=== PATIENT | female | born 1970 | race Caucasian/White ===

== ENCOUNTER → 2021-01-24 17:20 | Outpatient (CLI) | payer BC, SELFPAY ==
--- NOTE | ~2021-01-24 | MM_ITS ---
EXAMINATION: MM screening [facility] BI w yarelis HISTORY: Screening mammogram TECHNIQUE: Craniocaudal and mediolateral oblique 3-D tomosynthesis images were obtained and synthetic 2-D images were generated. CAD analysis was submitted and interpreted. COMPARISON: 04/21/2019, 06/28/2017, 06/23/2016 bilateral digital screening mammogram examinations BREAST PARENCHYMAL COMPOSITION: The breasts are extremely dense, which lowers the sensitivity of mamm ography. FINDINGS: There is no evidence of suspicious mass, calcification, or architectural distortion to sugg est malignancy in either breast. There has been no suspicious interval change. IMPRESSION: 1. No mammographic evidence of malignancy. 2. Recommend routine screening mammography in one year. BI-RADS Category 1: Negative Reviewed, dictated and finalized at location A.
== END ==
PROVIDERS: Visit Provider Obstetrics & Gynecology
DX: Z12.31 Encounter for screening mammogram for malignant neoplasm of breast (principal)
CPT/HCPCS: 77063; 77067

== ENCOUNTER 2021-06-06 02:13 | Emergency (ER) | payer BC, SELFPAY ==
--- NOTE | 2021-06-06 02:14 | ECG_ITS ---
Measurements Intervals [place] Rate: 112 P: 76 ID: 147 QRS: 77 QRSD: 110 T: 13 QT: 354 QTc: 483 Interpretive Statements SINUS TACHYCARDIA POSSIBLE LEFT ATRIAL ENLARGEMENT INCOMPLETE RIGHT BUNDLE BRANCH BLOCK NONSPECIFIC ST & T-WAVE ABNORMALITY- ANTEROLAT/INF LEADS BASELINE ARTIFACT- I, II, III, AVR, AVL, AVF, V1-V6 ABNORMAL ECG Electronically Signed On 06-06-2021 6:42:01 CDT by Robb Thompson D.O.
[2021-06-06 02:28] VITALS: BP 151/78; PULSE 127; RESP 14; O2SAT 100
[2021-06-06 02:32] VITALS: BP 127/87; PULSE 105; RESP 20; TEMP 37.1; O2SAT 99
--- NOTE | 2021-06-06 02:38 | ED.ARRPALP ---
HPI - Arrhythmia/Palpitations General Chief Complaint: Arrhythmia/Palpitations Stated Complaint: AFIB Time Seen by Provider: 06/06/21 02:17 Source: patient, RN notes reviewed and old records reviewed Mode of arrival: ambulatory Limitations: no limitations History of Present Illness HPI narrative: This is a 50 year old female with history of anxiety and tachycardia who presents for evaluation of possible atrial fibrillation. She states she was laying in bed around midnight when she develop heart pounding and racing. She had associated mouth tingling and lightheadedness. She took an extra Cardizem 30 mg. She was unable to get her symptoms to pass so she came to ER. She states she still feels same feeling now although EKG only shows sinus tachycardia. She denies chest pain or shortness of breath. She also notes abdominal bloating and feeling of fullness for 2 weeks. She denies abdominal pain, nausea or vomiting or constipation with her symptoms. She is seeing Dr. Rogers for her tachycardia, and she was told she had mitral prolapse and intermittent episodes of atrial fibrillation. Shed denies taking any stimulant. 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 Review of Systems Review of Systems: All systems reviewed & are unremarkable except as noted in HPI and below PMFSH Past Medical History Medical History (Updated 06/06/21 @ 04:06 by Amelia Hays MD) GERD (gastroesophageal reflux disease) IBS (irritable bowel syndrome) Lyme disease Mitral valve prolapse Osteoporosis UTI (urinary tract infection) Surgical History Surgical History History of hysterectomy Hx of cholecystectomy Family History Family History (Updated 01/05/19 @ 16:28 by DOCTOR UNKNOWN) Mother Diabetes mellitus Social History Social History Smoking status: Never smoker Second hand tobacco smoke exposure: No Alcohol intake: never Gender identity (if verbalized by the patient): Female Exam Const: General: alert Nutritional Appearance: thin Orientation/consciousness: patient oriented x3 Eyes: EOM: EOMs intact bilaterally Resp: Effort & Inspection: normal respiratory effort and no retractions Auscultation: clear to auscultation bilaterally Cardio: Rate: tachycardic Rhythm: regular rhythm Heart sounds: no murmurs GI: GI Palp: Yes Soft to palpation, No Tenderness to palpation present (GI) and No Guarding due to palpation present (GI) Auscultation: normal bowel sounds Skin: General skin exam: normal color Rashes: no rashes Neuro: General: patient oriented x3, moves all extremities and CN's II-XI intact bilaterally Extrem: General: normal to inspection Psych: Affect: Anxious affect present Course Reevaluation(s) Reevaluation #1: PAtient has no symptoms now. Vitals now are HR 87 normal sinus BP 136/83. She was given potassium supplement. She will call DR. Kelley tomorrow for follow up and possible increase in her cardizem. Date: 06/06/21 Time: 04:02 Vital Signs Vital signs: Vital Signs Pulse Rate 127 H 06/06/21 02:28 Respiratory Rate 14 06/06/21 02:28 Blood Pressure 151/78 H 06/06/21 02:28 Pulse Oximetry 100 06/06/21 02:28 Temperature 98.7 F 06/06/21 02:32 Pulse Rate 86 06/06/21 04:21 Respiratory Rate 12 06/06/21 04:21 Blood Pressure 136/83 06/06/21 04:21 Pulse Oximetry 98 06/06/21 04:21 MDM - Arrhythmia/Palpitations Medical Records Attestation: I reviewed the patient's medical records. Lab Data Attestation: I reviewed the patient's lab results. Result diagrams: 06/06/21 02:43 06/06/21 02:43 Labs: Lab Results 06/06/21 06/06/21 06/06/21 Range/U
[2021-06-06 02:55] LABS: Basophils Percent Auto 0.4 % (0.2-1.2); Eosinophils Percent Auto 0.5 % (0-4.4); Hematocrit 43.1 % (37.0-47.0); Immature Granulocyte Absolute 0.01 K/mm3 (0.00-0.031); Immature Granulocyte Percent A 0.2 % (0-0.5); Lymphocytes Absolute Auto 1.27 K/mm3 (0.9-3.2); Lymphocytes Percent Auto 23.1 % (18.3-44.2); Mean Corpuscular HGB Conc 32.5 g/dl (32-36); Mean Corpuscular Hemoglobin 31.7 pg (26-34); Mean Corpuscular Volume 97.7 fl (80-100); Mean Platelet Volume 11.6 fl (7.4-10.4); Monocytes Absolute Auto 0.7 K/mm3 (0.1-0.6); Monocytes Percent Auto 12.2 % (2.6-8.5); Neutrophils Absolute Auto 3.5 K/mm3 (1.3-6.7); Neutrophils Percent Auto 63.6 % (45.5-73.1); Platelet Count Result 162 k/mm3 (150-375); Red Blood Count 4.41 M/mm3 (4.2-5.4); Red Cell Distribution Width 13.2 % (11.5-14.5); White Blood Count 5.5 K/mm3 (4.5-10.0)
[2021-06-06 03:16] LABS: Alanine Aminotransferase 30 U/L (4-35); Albumin Level 4.9 g/dL (3.5-5.1); Alkaline Phosphatase 140 U/L (38-126); Anion Gap 13 mmol/L (8-16); Aspartate Amino Transferase 34 U/L (14-36); Bilirubin,Total 0.7 mg/dL (0.2-1.3); Blood Urea Nitrogen 16 mg/dL (7-17); Calcium 10.1 mg/dL (8.4-10.2); Carbon Dioxide 21 mmol/L (22-30); Chloride 103 mmol/L (98-107); Estimated CRCL calculation 68 ml/min; Estimated Glomerular Filt Rate > 60; Glucose 111 mg/dL (65-110); Lipase 238 U/L (23-300); Potassium 3.2 mmol/L (3.4-5.0); Sodium 137 mmol/L (137-145)
[2021-06-06 03:28] VITALS: BP 127/80; PULSE 89; RESP 18; O2SAT 99
[2021-06-06 03:28] LABS: Troponin I < 0.012 ng/mL (0.000-0.034)
--- NOTE | 2021-06-06 03:29 | PM.IMHP ---
H&P: HPI History of Present Illness Date/Time: 06/06/21 03:29 [facility] Past Medical History Medical History (Updated 08/11/19 @ 00:00 by Mesha Barone) GERD (gastroesophageal reflux disease) IBS (irritable bowel syndrome) Lyme disease Mitral valve prolapse Osteoporosis UTI (urinary tract infection) Surgical History Surgical History History of hysterectomy Hx of cholecystectomy Family History Family History (Updated 01/05/19 @ 16:28 by DOCTOR UNKNOWN) Mother Diabetes mellitus Social History Social History Smoking status: Never smoker Second hand tobacco smoke exposure: No Alcohol intake: never Gender identity (if verbalized by the patient): Female Meds Home Medications and Allergies Home Medications Medication Instructions Recorded Confirmed Type metoprolol succinate 12.5 mg PO DAILY #7 tablet 08/10/19 Rx Allergies Allergy/AdvReac Type Severity Reaction Status Date / Time codeine AdvReac Intermediate N/V Verified 08/10/19 11:47 steroids Allergy 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/10/19 11:48 with eyak disease Vital Signs Vital Signs - 24 hr 06/06/21 02:28 06/06/21 02:32 Temperature 98.7 F Pulse Rate 127 H 105 H Respiratory Rate 14 20 Blood Pressure 151/78 H 127/87 Pulse Oximetry 100 99 H&P: Results Labs Labs: Short CBC 06/06/21 Range/Units 02:43 WBC 5.5 (4.5-10.0) K/mm3 Hgb 14.0 (12.0-15.0) g/dL Hct 43.1 (37.0-47.0) % Plt Count 162 (150-375) k/mm3 BMP 06/06/21 02:43 Sodium 137 Potassium 3.2 L Chloride 103 Carbon Dioxide 21 L BUN 16 Creatinine 0.60 L Glucose 111 H Calcium 10.1 Cardiac Enzymes 06/06/21 Range/Units 02:43 Troponin I < 0.012 (0.000-0.034) ng/mL Liver Function 06/06/21 Range/Units 02:43 Total Bilirubin 0.7 (0.2-1.3) mg/dL AST 34 (14-36) U/L ALT 30 (4-35) U/L Alkaline Phosphatase 140 H (38-126) U/L Albumin 4.9 (3.5-5.1) g/dL
[2021-06-06] MEDS: POTASSIUM CHLORIDE 20 MEQ TABLET 40 MEQ PO (03:39)
[2021-06-06 04:21] VITALS: BP 136/83; PULSE 86; RESP 12; O2SAT 98
== END 2021-06-06 04:22 | disposition home or self-care (01) ==
PROVIDERS: Emergency Provider General Practice; PCP Family Medicine
DX: R00.0 Tachycardia, unspecified (principal); R00.2 Palpitations; E87.6 Hypokalemia; I34.1 Nonrheumatic mitral (valve) prolapse; K21.9 Gastro-esophageal reflux disease without esophagitis; K58.9 Irritable bowel syndrome, unspecified; M81.0 Age-related osteoporosis without current pathological fracture; Z87.440 Personal history of urinary (tract) infections; I45.10 Unspecified right bundle-branch block; R94.31 Abnormal electrocardiogram [ECG] [EKG]
CPT/HCPCS: 36415; 80053; 83690; 83735; 84443; 84484; 85025; 93005; 99284; A9270

== ENCOUNTER 2022-01-13 07:33 | Outpatient (CLI) | payer BC, SELFPAY ==
--- NOTE | ~2022-01-13 | MM_ITS ---
EXAMINATION: MM screening [facility] BI w yarelis HISTORY: Screening mammogram TECHNIQUE: Craniocaudal and mediolateral oblique 3-D tomosynthesis images were obtained and synthetic 2-D images were generated. CAD analysis was submitted and interpreted. COMPARISON: 01/24/2021, 04/21/2019, 06/28/2017 BREAST PARENCHYMAL COMPOSITION: The breasts are extremely dense, which lowers the sensitivity of mamm ography. FINDINGS: There is no suspicious mass, calcification, or architectural distortion to suggest malignan cy in either breast. There has been no suspicious interval change. IMPRESSION: 1. No mammographic evidence of malignancy. 2. Recommend routine screening mammography in one year. BI-RADS Category 1: Negative Reviewed, dictated and finalized at location A.
== END 2022-01-13 07:34 | disposition home or self-care (01) ==
LOC: ANHIMG 07:34
PROVIDERS: PCP Family Medicine; Visit Provider Obstetrics & Gynecology
DX: Z12.31 Encounter for screening mammogram for malignant neoplasm of breast (principal)
CPT/HCPCS: 77063; 77067

== ENCOUNTER → 2022-09-08 14:09 | Outpatient (CLI) | payer BC, SELFPAY ==
--- NOTE | ~2022-09-08 | DEXA_ITS ---
Bone Density Report Name: RENUKA BEAUCHAMP Age: 52 Sex: Female Ethnicity: White Date of : 1970 Indication: postmenopausal osteoporosis; hysterectomy; Referring Provider: Lucia Liz Study: Bone densitometry was performed. Exam Date: September 08, 2022 Accession number: [id number] Bone Density: Region BMD T-score Z-score Classification AP Spine (L1-L4) 0.670 -3.4 -2.6 Osteoporosis Femoral Neck (Left) 0.472 -3.4 -2.5 Osteoporosis Total Hip (Left) 0.490 -3.7 -3.2 Osteoporosis Femoral Neck (Right) 0.500 -3.1 -2.3 Osteoporosis Total Hip (Right) 0.542 -3.3 -2.7 Osteoporosis Total Hip Mean 0.516 -3.5 -3.0 Osteoporosis World Health Organization criteria for BMD impression classify patients as: Normal (T-score at or above -1.0), Osteopenia (T-score between -1.0 and -2.5), or Osteoporosis (T-score at or below -2.5). 10-year Fracture Risk: FRAX not reported because: Some T-score for Spine Total or Hip Total or Femoral Neck at or below -2.5 Previous Exams: Region Exam Age BMD T-score BMD Change BMD Change Date g/cm2 vs Baseline vs Previous AP Spine(L1-L4) 09/08/2022 52 0.670 -3.4 -0.094* -0.094* 09/29/2013 43 0.765 -2.6 Total Hip(Left) 09/08/2022 52 0.490 -3.7 -0.104* -0.104* 09/29/2013 43 0.594 -2.9 Total Hip(Right) 09/08/2022 52 0.542 -3.3 -0.068* -0.068* 09/29/2013 43 0.611 -2.7 *Denotes significance at 95% confidence level, LSC for AP Spine = 0.022 g/cm2, LSC for Total Hip = 0.027 g/cm2 Clinical Information Provided by Patient: Has used the following medications: HRT (i.e. estrogen/hormone therapy), Vitamin D, Calcium Has the following medical conditions: Hysterectomy Patient maximum height was 65.5 Menopause Age: 46 Does not regularly consume dairy products Drinks caffeinated beverages Onset of menses at age 14 Number of children 0 Impression: The patient has osteoporosis, based on the Left Total Hip T-score. The BMD for the AP Spine(L1-L4) decreased, changing by -0.094 since the last DXA exam. The BMD for the Total Hip(Left) decreased, changing by -0.104 since the last DXA exam. The BMD for the Total Hip(Right) decreased, changing by -0.068 since the last DXA exam. Discussion: HIGH RISK OF FRACTURE. BONE DENSITY IS UNDESIRABLY LOW AT ONE OR MORE SKELETAL SITES, CONSISTENT WITH OSTEOPOROSIS. ALSO, BONE DENSITY IS LOWER THAN EXPECTED FOR AGE AND SEX AT ONE OR MORE SKELETAL SITES; RECOMMEND A
== END ==
PROVIDERS: PCP Internal Medicine
DX: Z78.0 Asymptomatic menopausal state (principal); M81.0 Age-related osteoporosis without current pathological fracture
CPT/HCPCS: 77080

== ENCOUNTER → 2023-01-15 10:11 | Outpatient (CLI) | payer BC, SELFPAY ==
--- NOTE | ~2023-01-15 | MM_ITS ---
EXAMINATION: MM screening [facility] BI w yarelis HISTORY: Screening TECHNIQUE: Craniocaudal and mediolateral oblique 3-D tomosynthesis images were obtained and synthetic 2-D images were generated. CAD analysis was submitted and interpreted. COMPARISON: Comparison to multiple prior studies sequentially, with oldest reviewed study dated 06/09. BREAST PARENCHYMAL COMPOSITION: The breasts are extremely dense, which lowers the sensitivity of mamm ography FINDINGS: There is no evidence of suspicious mass, calcification, or architectural distortion to sugg est malignancy in either breast. There has been no suspicious interval change. IMPRESSION: 1. No mammographic evidence of malignancy. 2. Recommend routine screening mammography in one year. BI-RADS Category 1: Negative Reviewed, dictated and finalized at location A.
== END ==
PROVIDERS: PCP Internal Medicine; Visit Provider Obstetrics & Gynecology
DX: Z12.31 Encounter for screening mammogram for malignant neoplasm of breast (principal)
CPT/HCPCS: 77063; 77067

== ENCOUNTER 2024-12-22 14:20 | Emergency (ER) | payer BC, SELFPAY ==
--- OUTSIDE RECORDS SUMMARY | 2024-12-23 12:09 | XMS_ITS | Clinical Summary ---
Author Organization [facility] Address [address] [place] [id number] Care Team Providers Care Resaw Feeder Name Role Phone Saroj William DPM Primary Care Provider [phone] Social History Tobacco Use Types Packs/Day Years Used Date Smoking Tobacco: Never Assessed Comments Unknown Sex and Gender Information Value Date Recorded Sex Assigned at Not on file Legal Sex Female 5:10 PM CDT Gender Identity Not on file Sexual Orientation Not on file Plan of Treatment Health Maintenance Due Date Last Done Comments Cervical Cancer Screening Pa p Smear (Age 30 to 64) Every 3 Years 1970 Colorectal Cancer Screening Colonoscopy (10 Years) 1970 Annual Physical 1973 Hepatitis C 1988 DTaP, Tdap and Td Vaccines ( 1 - Tdap) 1989 Hepatitis B Vaccines (1 of 3 - 19+ 3-dose series) 1989 Cervical Cancer Screening Pa p with HPV Testing (Age 30 to 64) Every 5 Years 2000 Cervical Cancer Screening with HPV 2000 Mammogram Screening 2010 Pneumococcal Vaccine: 50+ Ye ars (1 of 1 - PCV) 2020 Zoster Vaccines (1 of 2) 2020 COVID-19 Vaccine ( - 2023-2 5 season) 2024 Meningococcal B Vaccine Aged Out No l onger eligible based on patient's age to complete this topic Meningococcal Vaccine Aged Out No rufus lukas eligible based on patient's age to complete this topic RSV Immunizations Under 20 Months Aged Out No longer eligible based on patient's age to complete this topic Care Teams Resaw Feeder Relationship Specialty Start Date End Date Saroj William DPM [facility] [address] [id number] PCP - General 06/03/16
--- OUTSIDE RECORDS SUMMARY | 2024-12-23 12:09 | XMS_ITS | Encounter Summary ---
Author Organization [facility] Address [address] [place] [address] Care Team Providers Care Barn Hand Name Role Phone Adam Bonner MD Primary Care Provider + [phone] Michelle Melendez MD Primary Care Provider + [phone] Tracie Buenrostro MD Primary Care Provider [phone] Encounter Details Date Type Department Care Team (Late st Contact Info) Description 03/11/2016 [place] Only [facility] [place] [address] [place] [address] Scanning, Provider Social History Tobacco Use Types Packs/Day Years Used Date Smoking Tobacco: Never Assessed Comments Unknown Sex and Gender Information Value Date Recorded Sex Assigned at Not on file Legal Sex Female 5:23 AM DESKTOP SUPPORT ENGINEER Gender Identity Female 06/18/2021 8:14 PM DESKTOP SUPPORT ENGINEER Sexual Orientation Straight 06/18/2021 8: 14 PM DESKTOP SUPPORT ENGINEER documented as of this encounter Plan of Treatment Not on file documented as of this encounter Procedures Procedure Name Priority Date/Time Associated Diagnosis Comments GI - RESULT 03/11/2016 documented in this encounter Results * GI - RESULT (03/11/2016) Anatomical Region Laterality Modality Other us Provider Scanning Final Result documented in this encounter Visit Diagnoses Not on filedocumented in this encounter Care Teams Barn Hand Relationship Specialty Start Date End Date Adam Bonner MD [address] [place] [address] PCP - General 11/26/16 03/05/20 Michelle Melendez MD [address] [place] [address] [place] [address] PCP - General 03/06/20 06/18/21 Tracie Buernostro MD [id number] [place] [address] PCP - General Internal Medicine 06/19/21 documented as of this encounter
--- OUTSIDE RECORDS SUMMARY | 2024-12-23 12:09 | XMS_ITS | Patient Health Record ---
Author Organization [facility] Address [address] [facility] [address] [place] [id number] Care Team Providers Care Equipment Operating Engineer Name Role Phone Porter CONTRERAS, Tracie Primary Care Provider Unavail able Kev Reynoso Unavailable [phone] Livan Castano MD Unavailable Allergies Allergen (clinical drug ingredient) Drug/Non Drug Allergy documented on EMR Reaction Allergy Type Onset Date Status codeine Codeine Unknown Drug Allergy Active Reason For Referral No Information Medications Medication SIG (Take, Route, Frequency, Duration) Notes Start Date End Date Status Atrantil - 2 tablets PO TID for 10 days 09/03/2022 Active Erythromycin 50 MG 1 by mouth at bedtime for 90 days 09/03/2022 Active OTC/Vitamins Vitamins, Minerals, BPC-157 Peptide Active Estradiol Active Testosterone Active Metoprolol Succinate Active Neomycin Sulfate 500 MG 1 tablets Orally bid for 10 days 09/03/2022 Active Social History Tobacco Use: Social History Observation Description Date Details (start date - stop date) Never Smoker NA - NA Tobacco Use/Smoking Question Answer Notes Are you a nonsmoker Problems Problem Type SNOMED Code ICD Code Onset Dates Problem Status W/U Status Risk Notes Problem Globus sensation (020866215) Globus sensation (R09.89) Active confirmed Problem Small intestinal bacterial overgrowth (SIBO) (K63.89) Active confirmed Plan Of Treatment No Information Insurance Providers Payer Name Payer Address Payer Phone Subscriber Number Group Number Insured Name Patient Relationship to Insured Coverage Start Date Coverage End Date [facility] [address] [place] [phone] [id number] Aleksandra Arambula Self - patient is the insured Medical (General) History Medical History History ICD Code GERD Hypothyroidism Anxiety Atrial Fibrillation Lyme Disease Surgical History Surgery Date(Month/Year) Endoscopy (Dr Spears) 12/2021 Colonoscopy (Dr Spears) 03/2016 Cholecystectomy 08/2014 Partial Hysterectomy Right Breast Lumpectomy
--- OUTSIDE RECORDS SUMMARY | 2024-12-23 12:09 | XMS_ITS | Clinical Summary ---
Author Organization [facility] Address [address] [place] [address] Care Team Providers Care Guest Room Inspector Name Role Phone Tracie Buenrostro MD Primary Care Provider [phone] Allergies Active Allergy Reactions Criticality Noted Date Comments Codeine Other (See comments),Vomiting High 2014 Medications naltrexone (DEPADE) 50 mg tablet Take 4.5 mg by mouth daily Low dose 4.5mg Active testosterone, bulk, powder 0 06/02/2023 Active estradioL 10 mg pellet by implant route Active metroNIDAZOLE (FLAGYL) 500 mg tablet Take 1 tablet (500 mg total) by mouth as needed 02/04/2024 Active nystatin 500,000 unit tablet as needed 12/16/2023 Active ketotifen fumarate, bulk, 100 % powder 4mg daily Use 1mg pills 0.12 g 11 03/01/2024 Active thyroid (ARMOUR THYROID) 30 mg tablet Take 1 tablet (30 mg total) by mouth daily Active Active Problems Problem Noted Date Diagnosed Date Earache 11/06/2024 Assessment & Plan (11/06/2024 2:28 PM CDT): Patient complains of bilateral earache with no other symptoms. On exam there was small amount of wax. She has small ear canals. Ears were irrigated. Post irrigation the eardrums were clear. The patient will call us back if she has persistent symptoms for ENT referral Food allergy 04/26/2023 Assessment & Plan (04/26/2023 7:55 AM CDT): Managed by webfocus developer Non-seasonal allergic rhinitis due to pollen Assessment & Plan (04/26/2023 7:55 AM CDT): Managed by webfocus developer Body mass index (BMI) less than 16.5 10/15/2022 Globus sensation 04/22/2022 Assessment & Plan (10/15/2022 9:48 AM FINGERPRINT TECHNICIAN): Patient had extensive workup that was essentially unremarkable. She is currently under the care of a 3rd out and out cigar maker hand and webfocus developer and she noticed improvement in her symptoms with the current medications. Acquired hypothyroidism 01/14/2022 Assessment & Plan (04/26/2023 7:51 AM CDT): Patient is managed for that by hormonal specialist and she made an appointment with senior administrator support for 2nd opinion Assessment & Plan (01/15/2022 11:11 AM CDT): Patient is managed for that by hormonal specialist and she made an appointment with senior administrator support for 2nd opinion Routine general medical exam ination at a [facility] care facility 06/19/2021 Assessment & Plan (10/15/2022 9:49 AM FINGERPRINT TECHNICIAN): Patient uses seatbelt. Patient is physically active. She is up-to-date with Pap smear and mammogram and colonoscopy. She does not want to take vaccines because of history of Lyme disease. I am not aware of any connection between vaccines and Lyme disease but she said that she is under the care of a Lyme Disease specialist who recommended no vaccines. Assessment & Plan (06/19/2021 5:05 PM FINGERPRINT TECHNICIAN): Patient uses seatbelt. She is followed by railcar brake operator. She said she had colonoscopy 4 years ago and it was normal. She will bring us a copy of that. She exercises on regular basis. Blood work was ordered. Goiter 06/19/2021 Assessment & Plan (01/15/2022 11:10 AM CDT): Patient with chronic goiter. She has an appointment to see senior administrator support Assessment & Plan (06/19/2021 5:06 PM FINGERPRINT TECHNICIAN): Will obtain thyroid ultrasound and will obtain thyroid function test for further evaluation Atypical chest pain 09/06/2019 Inappropriate sinus tachycardia 09/06/2019 Mitral valve prolapse 09/06/2019 Osteoporosis without current pathological fractu re 01/11/2018 Assessment & Plan (04/26/2023 9:06 AM CDT): Patient has osteoporosis. She takes calcium 500 mg daily and vitamin-D 5000 units daily. Patient said that she has follow-up appointment with bone specialist for management of osteoporosis. Discussed fall precautions. Cervico-occipital neuralgia 03/03/2017 Telangiectasias 01/01/2016 Vitamin D deficiency 11/30/2014 Abnormality on bone densitometry 11/08/2014 Tachycardia Assessment & Plan (01/15/2022 11:10 AM CDT): Patient is maintained on metoprolol and she is followed by instrument worker Assessment & Plan (06/19/2021 5:06 PM FINGERPRINT TECHNICIAN): Controlled on Cardizem and followed by the instrument worker Gastroparesis Assessment & Plan (01/15/2022 11:11 AM CDT): Patient is followed by out and out cigar maker hand. She was seen by 2 gastroenterologists recently. She continues to have sensation in the throat area. The out and out cigar maker hand made referral to see ENT doctor for further evaluation. 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 We will refill the medication. Side effects of the medication discussed with the patient and she was advised not to take it on regular basis and she verbalized understanding Encounters Date Type Department Care Team Description 12/22/2024 Nurse Triage [facility] [address] [place] [phone] Jessica Fernandes RN 11/06/2024 1:15 PM CDT Office Visit [facility] [address] [place], [place] [address], [place] [address] Tracie Buenrostro MD Earache (Primary Dx); BMI less than 19,adult 10/31/2024 Orders Only [facility] Internal Medicine [address] [place] [address] [place] [phone] Provider, MD Toni from Last 3 Months Immunizations Immunization Administration Dates Next Due Influenza, Unspecified 04/26/2023(Deferred: Marcelina ent decision) Surgical History Surgery Date Site/Laterality Comments CHOLECYSTECTOMY 08/09/2014 - 08/08/2015 HYSTERECTOMY 08/09/2015 - 08/08/2016 TLH due to fibroids BREAST LUMPECTOMY 08/09/2007 - 08/08/2008 Right Medical History Medical History Date Comments Atrial fibrillation (HCC) Tachycardia Dysphagia GERD (gastroesophageal reflux disease) Hypothyroidism Lyme disease Osteoporosis November 2014 Infection Lyme disease since 2005 Family History Medical History Relation Name Comments Cancer Father Vicente Heart disease Father Vicente Hypertension Father Vicente Prostate cancer Father Vicente Ovarian cancer Maternal Grandmother Arthritis Mother Vizcaino Family history of arthritis - (Added by TW Conv) Colon polyps Mother Vizcaino Diabetes Mother Vizcaino Family history of diabetes mellitus - (Added by TW Conv) Hypertension Mother Vizcaino Family history of hypertension - (Added by TW Conv) Memory loss Mother Vizcaino Osteopenia Mother Vizcaino Family history of osteopenia - (Added by TW Conv) Osteopenia Other Family history of osteopenia - (Added by TW Conv) Relation Name Status Comments Father Vicente Maternal Grandmother Mother Vizcaino Alive Other Social History Tobacco Use Types Packs/Day Years Used Date Smoking Tobacco: Never Passive Smoke Exposure: Never Smokeless Tobacco: Never Tobacco Cessation:Counseling Given: Not Answered AUDIT-C Answer Date Recorded Q1: How often do you have a drink containing alcohol? Never 11/06/2024 Q2: How many drinks containi ng alcohol do you have on a typical day when you are drinking? Patient does not drink Q3: How often do you have si x or more drinks on one occasion? Never 11/06/2024 PHQ-2 Answer Date Recorded PHQ-2 Total Score (If total score is 3 or more points, staff should administer the PHQ-9) 0 11/06/2024 Comments No Sex and Gender Information Value Date Recorded Sex Assigned at Not on file Legal Sex Female 5:23 AM FINGERPRINT TECHNICIAN Gender Identity Female 06/18/2021 8:14 PM FINGERPRINT TECHNICIAN Sexual Orientation Straight 06/18/2021 8: 14 PM FINGERPRINT TECHNICIAN Obstetrics History Last Filed Vital Signs Vital Sign Reading Time Taken Comments Blood Pressure 102/70 11/06/2024 1:18 PM CDT Pulse 81 11/06/2024 1:18 PM CDT Temperature 36.3 C (97.3 F) 11/06/2024 1:18 PM CDT Respiratory Rate 16 11/06/2024 1:18 PM CDT Oxygen Saturation 100% 11/06/2024 1:18 PM CDT Inhaled Oxygen Concentration - - Weight 45.2 kg (99 lb 11.2 oz) 11/06/2024 1:18 P M CDT Height 165.1 cm (5' 5 ) 11/06/2024 1:18 PM CDT Body Mass Index 16.59 11/06/2024 1:18 PM CDT Plan of Treatment Health Maintenance Due Date Last Done Comments Hepatitis C Screening 1970 Hepatitis B Screening 1988 Zoster Vaccine (1 of 2) 2020 Regular Well Visit/Exam 18-64 10/16/2023 10/15/2022, 06/19/2021 Breast Cancer Screening-Mammogram 01/27/2025 01/28/2024, 01/28/2024, 01/15/2023, Additional history exists Depression Screening 11/06/2025 11/06/2024, 10/15/2022, 01/15/2022, Additional history exists Colon Cancer Screening-Colonoscopy 10/30/2034 10/30/2024, 03/11/2016 Cervical Cancer Screening Discontinued 01/02/2021 DTaP/Tdap/Td Vaccine Discontinued Influenza Vaccine Discontinued Pneumococcal vaccine <65 Aged Out No longer eligible based on patient's age to complete this topic Procedures Procedure Name Priority Date/Time Associated Diagnosis Comments COLONOSCOPY Routine 10/30/2024 1:37 PM CDT MAMMOGRAPHY Routine 01/15/2023 GENITAL FLUID PAP SMEAR, THIN PREP WITH HPV EVALUATION Routine 01/02/2021 from Last 3 Months or Most Recently Relevant to Health Maintenance Results * Colonoscopy (10/30/2024 1:37 PM CDT) Anatomical Region Laterality Modality Other us Historical Provider ENDOSCOPY PROCEDURES Felicity l Result * HM MAMMOGRAPHY (01/15/2023) Impressions Amalia Madrigal MA - 01/15/2023 Normal shane at [facility] us Historical Provider HEALTH MAINTENANCE Final Result * Genital fluid pap smear, thin prep with HPV evaluation (01/02/2021) 01/02/2021 us Historical Provider LAB CYTOLOGY ORDERABLES F inal Result from Last 3 Months or Most Recently Relevant to Health Maintenance Insurance [facility] BLUE ACCESS [place] [facility] [place] Advance Directives For more information, please contact: [phone] * Full Code (Latest Code Status on File) Date Activated Date Inactivated Comments 12/17/2021 7:43 AM 12/17/2021 1:34 PM Care Teams Guest Room Inspector Relationship Specialty Start Date End Date Tracie Buenrostro MD [address] [facility] [address] [place] [address] [place] [id number] PCP - General Internal Medicine 06/19/21
--- OUTSIDE RECORDS SUMMARY | 2024-12-23 12:09 | XMS_ITS | Continuity of Care Document ---
Author Organization [facility] Address [address] [place] [address] Phone Care Team Providers Care Farm Consultant Name Role Phone Venkatesh Rosales MD Unavailable Unavailable Procedures Procedure Date COMPUTED TOMOGRAPHY, HEART, WITHOUT CONT RAST MATER Advance Directives Directive Yes / No Effective Date File Name No Information Encounters Encounter Description Practice Location Reason(s) For Visit Diagnoses Date Provider Providers Copied on Encounter [facility], [address], [place], [place], [id number], [place] tel:[phone] [facility] No Information Bobby Riddle. [address] [facility], [place], [place], [id number], [place]. tel:[phone] Referring Provider: Livan Castano, [address] [facility] [address] [facility], [place], [address]. tel:[phone] Family History Family Member Type Diagnosis Age At Onset No Information Payers Payer name Insurance type Covered democrat ID Authoriza tion(s) No Information Social History Type Description Quantity Date Captured Comments Sex Female Smoking Status No Information Chief Complaint And Reason For Visit No Information Reason For Referral Reason For Referral No Information History Of Present Illness Encounter Date Complaint History Of Prese nt Illness No Information Functional Status Date Functional Assessmen t No Information Instructions Date Instruction Additional Infor mation No Information Assessments Type Assessment Date No Information Patient Care Teams Name Effective Dates (start - stop) Status Members No Information
--- OUTSIDE RECORDS SUMMARY | 2024-12-23 12:09 | XMS_ITS | Encounter Summary ---
Author Organization [facility] Address [address] [place] [address] Care Team Providers Care Professor Of Environmental Studies Name Role Phone Tracie Buenrostro MD Primary Care Provider [phone] Reason for Visit * Reason Onset Date Comments urinary symptoms 12/22/2024 Encounter Details Date Type Department Care Team (Late st Contact Info) Description 12/22/2024 Nurse Triage [facility] Internal Medicine [address] [place] [phone] Jessica Fernandes, RN Social History Tobacco Use Types Packs/Day Years Used Date Smoking Tobacco: Never Passive Smoke Exposure: Never Smokeless Tobacco: Never AUDIT-C Answer Date Recorded Q1: How often [...] on file Legal Sex Female 5:23 AM PELLET POST INSPECTOR Gender Identity Female 06/18/2021 8:14 PM PELLET POST INSPECTOR Sexual Orientation Straight 06/18/2021 8: 14 PM PELLET POST INSPECTOR documented as of this encounter Miscellaneous Notes * Telephone Encounter - Jessica Fernandes RN - 12/22/2024 3:53 PM CDT RN spoke with pt on second call back attempt regarding urinary symptoms. Pt states she ended up going to local [facility] for eval and was told UA was negative. She states they still plan to send itoff for culture though. She also states the OTC test strips can give false positive results. Pt will monitor symptoms. If any changes, new symptoms, or worsening symptoms, pt was advised to be seen again at /. If no new or worsening symptoms but symptoms persist, she plans to call back for OV Wednesday. Care advice reviewed. Pt agrees to call back with worsening symptoms or further concerns. Reason for Disposition Patient already left for the hospital/clinic Protocols used: No Contact or Duplicate Contact [id number] * Telephone Encounter - Jessica Fernandes RN - 12/22/2024 3:05 PM CDT Regarding: Burning when urinating,cramping. UTI test strip says positive ----- Message from Tawnya Cowan sent at 12/22/2024 1:12 PM CDT ----- Symptom Based Call Chief Complaint(s): Burning when urinating,cramping. UTI test strip says positive Duration: couple days, Test strip today showed positive What type of symptom(s) is the patient experiencing? Non-Emergent. Is this a new or reoccurring symptom(s)? new What have you tried to help your symptom(s)? Cranberry pills Why was appointment not scheduled? Appointment availability did not meet the patient's need. Additional Comments: none Does message need to be routed? Yes-Action Needed documented in this encounter Plan of Treatment Not on file documented as of this encounter Visit Diagnoses Not on filedocumented in this encounter Care Teams Professor Of Environmental Studies Relationship Specialty Start Date End Date Tracie Buenrostro MD [address] [facility] [address] [place] [address] [place] [id number] PCP - General Internal Medicine 06/19/21 documented as of this encounter
--- OUTSIDE RECORDS SUMMARY | 2024-12-23 12:09 | XMS_ITS | Referral Summary ---
Author Organization [facility] Address [address] [place] [address] Care Team Providers Care Wood Boatbuilder Apprentice Name Role Phone Tracie Buenrostro MD Primary Care Provider Encounters Date Type Department Care Team Description 12/22/2024 Nurse Triage [facility] Internal Medicine [address] [place] [phone] Jessica Fernandes RN 11/06/2024 1:15 PM CDT Office Visit [facility] Internal Medicine [address] [place] [phone] Tracie Buenrostro MD Earache (Primary Dx); BMI less than 19,adult 10/31/2024 Orders Only [facility] Internal Medicine [address] [place] [phone] Provider, MD Toni from Last 3 Months Allergies Active Allergy Reactions Criticality Noted Date [...] Plan (04/26/2023 7:55 AM CDT): Managed by spreader operator automatic Non-seasonal allergic rhinitis due to pollen Assessment & Plan (04/26/2023 7:55 AM CDT): Managed by spreader operator automatic Body mass index (BMI) less than 16.5 10/15/2022 Globus sensation 04/22/2022 Assessment & Plan (10/15/2022 9:48 AM ELECTRICAL AND ELECTRONIC ASSEMBLER): Patient had extensive workup that was essentially unremarkable. She is currently under the care of a 3rd dog breeder and spreader operator automatic and she noticed improvement in her symptoms with the current medications. Acquired hypothyroidism 01/14/2022 Assessment & Plan (04/26/2023 7:51 AM CDT): Patient is managed for that by hormonal specialist and she made an appointment with water attendant for 2nd opinion Assessment & Plan (01/15/2022 11:11 AM CDT): Patient is managed for that by hormonal specialist and she made an appointment with water attendant for 2nd opinion Routine general medical exam ination at a [facility] care facility 06/19/2021 Assessment & Plan (10/15/2022 9:49 AM ELECTRICAL AND ELECTRONIC ASSEMBLER): Patient uses seatbelt. Patient is physically active. [...] vaccines. Assessment & Plan (06/19/2021 5:05 PM ELECTRICAL AND ELECTRONIC ASSEMBLER): Patient uses seatbelt. She is followed by life insurance specialist. She said she had colonoscopy 4 years ago and it was normal. She will bring us a copy of that. She exercises on regular basis. Blood work was ordered. Goiter 06/19/2021 Assessment & Plan (01/15/2022 11:10 AM CDT): Patient with chronic goiter. She has an appointment to see water attendant Assessment & Plan (06/19/2021 5:06 PM ELECTRICAL AND ELECTRONIC ASSEMBLER): Will obtain thyroid ultrasound and will obtain [...] on metoprolol and she is followed by locker attendant Assessment & Plan (06/19/2021 5:06 PM ELECTRICAL AND ELECTRONIC ASSEMBLER): Controlled on Cardizem and followed by the locker attendant Gastroparesis Assessment & Plan (01/15/2022 11:11 AM CDT): Patient is followed by dog breeder. She was seen by 2 gastroenterologists recently. She continues to have sensation in the throat area. The dog breeder made referral to see ENT doctor for further evaluation. 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 We will refill the medication. Side effects of the medication discussed with the patient and she was advised not to take it on regular basis and she verbalized understanding Immunizations Immunization Administration Dates Next Due Influenza, Unspecified 04/26/2023(Deferred: Marcelina ent decision) Social History Tobacco Use Types Packs/Day Years [...] on file Legal Sex Female 5:23 AM ELECTRICAL AND ELECTRONIC ASSEMBLER Gender Identity Female 06/18/2021 8:14 PM ELECTRICAL AND ELECTRONIC ASSEMBLER Sexual Orientation Straight 06/18/2021 8: 14 PM ELECTRICAL AND ELECTRONIC ASSEMBLER Last Filed Vital Signs Vital Sign Reading [...] 11/06/2024 1:18 PM CDT Plan of Treatment Not on file Procedures Procedure Name Priority Date/Time Associated Diagnosis [...] Madrigal MA - 01/15/2023 Normal [facility] at [facility] Historical Provider HEALTH MAINTENANCE Final Result * Genital fluid pap smear, thin prep with HPV evaluation (01/02/2021) 01/02/2021 Historical Provider LAB CYTOLOGY ORDERABLES F inal Result from Last 3 Months or Most Recently Relevant to Health Maintenance Insurance [facility] BLUE [employer] [place] Advance Directives For more information, please contact: [phone] * Full Code (Latest Code Status on File) Date Activated Date Inactivated Comments 12/17/2021 7:43 AM 12/17/2021 1:34 PM Care Teams Wood Boatbuilder Apprentice Relationship Specialty Start Date End Date Tracie Buenrostro MD [address] [facility] [address] [place] [address] [place] [id number] PCP - General Internal Medicine 06/19/21
--- OUTSIDE RECORDS SUMMARY | 2024-12-23 12:10 | XMS_ITS | Data Portability ---
Author Organization [place] - [facility] OFFICE Address [address] [place] [id number] Care Team Providers Care Bed Maker Name Role Phone TIANNA BRAGA Primary Care Provider Assessment Encounter Date Assessment Date Assessment LastModified by Organization Details LastModified Time 04/22/2021 04/22/2021 Patient Examined by Purnima Cormier PA-C, Also interviewed / examined by Supervising physician. Assessment / plan discussed and implemented Encounter scribed by NAHUN Butt. Documentation reviewed and approved by supervising physician jose Not available 04/22/2021 17:40:58 07/22/2021 07/22/2021 Patient Examined by Purnima Cormier PA-C, Also interviewed / examined by Supervising physician. Assessment / plan discussed and implemented Encounter scribed by PAC. Daquan Documentation reviewed and approved by supervising physician [email or web address] Not available 07/20/2021 19:47:05 01/20/2022 01/20/2022 This document was scribed by DANN Montero Not available 01/20/2022 17:42:27 Plan of Treatment Reminders Order Date Submit Date Provider Last Modified By Organization Details Last Modified Time Details Appointments None recorded . Lab None recorded . Referral None recorded . Procedures None recorded . Surgeries None recorded . Imaging None recorded . Medication Orders metoprol ol succinat e ER 25 mg tablet,e xtended release 24 hr 2021 022 [facility] #[id number], [address], [place], [place], [phone], 17:45:49 Plavix 75 mg tablet 2021 022 [facility] #[id number], [address], [place], [place], [phone], 17:51:53 metoprol ol succinat e ER 25 mg tablet,e xtended release 24 hr 2020 021 [facility] #13597, [address], [place], [place], [phone], 17:42:51 Cardizem 30 mg tablet [address] [facility] #77222, [address], [place], [place], [phone], 17:41:36 Cardizem 30 mg tablet [address] [facility] #76299, [address], [place], [place], [phone], 17:41:36 metoprol ol succinat e ER 25 mg tablet,e xtended release 24 hr 2020 021 [facility] #03205, [address], [place], [place], [phone], 12:36:37 Patient TargetsNo targets recorded. Patient Instructions Encounter Date Encounter Id Patient Instructions Last Modified By Organization Details Last Modified Time 09/16/2020 [id number] Exercise advised Low cholesterol diet advised Low sodium diet advised [email or web address] Not available 09/17/2020 12:45:12 Scrib[address] [facility]- [email or web address] Not available 09/17/2020 12:45:15 02/21/2021 [id number] Exercise advised Low cholesterol diet advised Low sodium diet advised [email or web address] Not available 02/21/2021 10:41:45 Scribed by Theresa [address] [facility]- [email or web address] Not available 02/21/2021 10:41:48 07/22/2021 [id number] Exercise advised Low cholesterol diet advised Low sodium diet advised. [email or web address] Not available 07/22/2021 17:40:57 01/20/2022 [id number] Exercise advised Low cholesterol diet advised Low sodium diet advised. [email or web address] Not available 01/20/2022 17:43:25 Reason for Referral None Reported. Results Created Date Observation Date Name Description Value Unit Range Abnormal Flag Note LastModifiedBy Organization Detail LastModifiedTime 09/18/19 21 09/16/2020 elect rocar diogr am No observ ation record ed. esto Not Available 2020 03:58:12 03/03/20 21 02/21/2021 elect rocar diogr am No observ ation record ed. [email or web address] Not Available 03/13 14:12:08 03/22/20 21 03/18/2021 , [facility] shaw ardio gram No observ ation record ed. [facility] [address], [place], [address], 03/29/2021 14:06:01 07/10/20 21 03/24/2021 event monit or No observ ation record ed. [email or web address] Not Available 2020 17:26:37 07/24/20 21 07/22/2021 elect rocar diogr am No observ ation record ed. [email or web address] Not Available 2020 11:10:04 11/13/19 22 03/24/2021 event monit or No observ ation record ed. [email or web address] Not Available 2021 12:33:21 01/29/20 22 01/20/2022 elect rocar diogr am No observ ation record ed. [email or web address] Not Available 2021 10:40:04 Result Notes None recorded. Problems Name Problem SNOMED Code Status Onset Date Resolution Date Notes Provider Name and Address Organization Details Recorded Time Inappropriate sinus tachycardia 956365946 Active 2019 Evans Mesto null, [place] - [facility] 0 08:07:41 Mitral valve prolapse 579478170 Active 2019 Nathan [place] null, [place] - [facility] 0 08:07:51 Anxiety 48890863 Active 2019 Nathan [place] - [facility] 0 08:08:03 Palpitations 26230946 Active 2019 Evansbecky [place] null, [place] - [facility] 0 08:08:13 Atypical chest pain 290341904 Active 2019 Nathan [place] null, [place] - [facility] 0 08:09:41 Problem Notes None recorded. Procedures Surgical History None recorded. Imaging Results Imaging Date Name Status LastModified by Organization Details LastModified Time 09/16/2020 electrocardiogram completed esto Informa tion not available 09/25/2020 03:58:12 02/21/2021 electrocardiogram [place] [id number] Informa tion not available 03/13/2021 14:12:08 03/18/2021 , echocardiogram completed esto [facility] [address], [place], [address], 03/29/2021 14:06:01 03/24/2021 event monitor completed Information not available 07/10/2021 17:26:37 07/22/2021 electrocardiogram completed Informa tion not available 07/24/2021 11:10:04 03/24/2021 event monitor completed Information not available 11/12/2021 12:33:21 01/20/2022 electrocardiogram completed Informa tion not available 01/28/2022 10:40:04 Procedure Notes None recorded. Medical Equipment None Reported. Allergies Allergen ID Allergen Name Allergen Category Reaction Reaction Severity Criticality Documentation Date Start Date Code Code System Note Provider Name and Address Organization Details Recorded Time 9404 codeine medicatio n vomiting severe Not available 08/11/20192019 2670 RxNorm Livan Celaya null, [place] - [facility] 0 10:36:26 Medications Name Sig Start Date Stop Date Status Note LastModified by Organization Details LastModified Time %ivermect in 12mg capsules capsules TAKE 1 CAPSULE BY MOUTH TWICE DAILY FOR 3 WEEKS 01/20 completed Not Available Not Available Not Available %pyrantel pamoate 250mg capsules capsules TAKE 3 CAPSULES BY MOUTH TWICE DAILY FOR 3 WEEKS 01/20 completed Not Available Not Available Not Available Charlotte Thyroid 60 mg tablet TAKE 1 TABLET BY MOUTH EVERY MORNING 30 MINUTES BEFORE BREAKFAS T active Not Available Not Available No t Available ivermecti n (bulk) powder 01/20 completed Not Available Not Available Not Available Charlotte Thyroid 90 mg tablet TAKE 1 TABLET BY MOUTH EVERY MORNING AT LEAST 30 MINUTES BEFORE BREAKFAS T 01/20 completed Not Available Not Available Not Available doxycycli ne hyclate 100 mg capsule 01/20 completed Not Available Not Available Not Available azithromy jim 250 mg tablet TAKE 1 TO 2 TABLETS BY MOUTH ONCE EACH DAY FOR 30 DAYS 02/21 completed Not Available Not Available Not Available hydrocodo ne 5 mg-acetam inophen 325 mg tablet 02/25 completed Not Available Not Available Not Available fluconazo le 200 mg tablet TAKE 1 TABLET BY MOUTH ONCE DAILY NEEDED FOR YEAST OUTBREAK 01/20 completed Not Available Not Available Not Available metronida zole 0.75 % (37.5 mg/5 gram) vaginal gel INSERT ONE APPLICAT ORFUL VAGINALL Y AT BEDTIME FOR 5 NIGHTS 01/20 completed Not Available Not Available Not Available metronida zole 250 mg tablet START WITH 1/4 TABLET BY MOUTH ONCE DAILY WITH FOOD AND SLOWLY INCREASE YOUR DOSE UNTIL YOU FEEL BETTER OR GET UP TO 1 TABLET THREE TIMES DA 02/21 completed Not Available Not Available Not Available nystatin 500,000 unit tablet TAKE 8 TABLETS BY MOUTH EVERY DAY FOR 30 DAYS FOR INTESTIN AL YEAST 01/20 completed Not Available Not Available Not Available Plavix 75 mg tablet Take 1 tablet every day by oral route. 2021 active Not Available Not Available Not Avai lable tramadol 50 mg tablet TAKE 1 TO 2 TABLET BY MOUTH EVERY 4 HOURS NEEDED FOR PAIN DO NOT EXCEED 8 TABLETS IN 24 HOURS 01/20 completed only needed for oral surgery Not Available Not Available Not Available metoclopr amide 5 mg tablet TAKE 1 TABLET BY MOUTH THREE TIMES DAILY NEEDED FOR GASTROPA RESIS 01/20 completed Not Available Not Available Not Available doxycycli ne monohydra te 100 mg capsule TAKE ONE OR TWO CAPSULES BY MOUTH TWICE DAILY X 30 DAYS 01/20 completed Not Available Not Available Not Available pantopraz ole 40 mg tablet,de layed release 01/20 completed Not Available Not Available Not Available nortripty line 10 mg capsule 01/20 completed Not Available Not Available Not Available nystatin 100,000 unit/gram topical cream APPLY TO AFFECTED AREA TWICE DAILY 01/20 completed Not Available Not Available Not Available clotrimaz ole-betam ethasone 1 %-0.05 % topical cream APPLY TOPICALL Y TO THE AFFECTED AREA THREE TIMES DAILY 01/20 completed Not Available Not Available Not Available monteluka st 10 mg tablet 02/25 completed Not Available Not Available Not Available metoprolo l succinate ER 25 mg tablet,ex tended release 24 hr TAKE 1 TABLET BY MOUTH EVERY DAY DIRECTED 2021 active Not Available Not Available Not Avai lable albuterol sulfate HFA 90 mcg/actua tion aerosol inhaler 02/21 completed NO LONGER USES 09/16/19 21 RL Not Available Not Available Not Available diltiazem 30 mg tablet TAKE 1 TABLET BY MOUTH TWICE DAILY 07/22 completed pt no longer takes sa 07/22/21 Not Available Not Available Not Available ipratropi um bromide 42 mcg (0.06 %) nasal spray SPRAY 2 SPRAYS TO EACH NOSTRIL TWICE DAILY FOR 30 DAYS 01/20 completed Not Available Not Available Not Available ASA Buff (Mag Carb-Al Glyc) 325 mg tablet Take 1 tablet every day by oral route. 01/20 completed Not Available Not Available Not Available progester one micronize d 100 mg capsule 02/25 completed Not Available Not Available Not Available nystatin (bulk) 1 billion unit powder 01/20 completed Not Available Not Available Not Available nystatin (bulk) 5 billion unit powder 02/25 completed Not Available Not Available Not Available Restasis 0.05 % eye drops in a dropperet te INSTILL 1 DROP INTO BOTH EYES TWICE DAILY active Not Available Not Available No t Available tinidazol e 250 mg tablet TAKE ONE TABLET BY MOUTH THREE TIMES DAILY X 30 DAYS 01/20 completed Not Available Not Available Not Available DMSA (Bulk) 98 % powder 02/25 completed Not Available Not Available Not Available tinidazol e (bulk) 100 % powder 01/20 completed Not Available Not Available Not Available pyrantel pamoate (bulk) 100 % powder 01/20 completed Not Available Not Available Not Available Vitals Date Recorded Body height Body mass index (BMI) Body weight Heart rate Oxygen saturation Oxygen saturation in Arterial blood by Pulse oximetry Systolic blood pressure Diastolic blood pressure Provider Name and Address Organization Details Last Updated DateTime 1 165.1 cm 16.6 kg/m2 42549.2 4 g 88 /min 99 % 99 % 120 mm[Hg] 70 mm[Hg] Merry Lacyd [facility] 17:39:06 Date Recorded Body height Body mass index (BMI) Body weight Heart rate Oxygen saturation Oxygen saturation in Arterial blood by Pulse oximetry Systolic blood pressure Diastolic blood pressure Provider Name and Address Organization Details Last Updated DateTime 1 165.1 cm 16.5 kg/m2 28470.6 4 g 83 /min 99 % 99 % 120 mm[Hg] 75 mm[Hg] Robyn Brinkran [facility] 10:18:03 Date Recorded Body height Body mass index (BMI) Body weight Heart rate Oxygen saturation Oxygen saturation in Arterial blood by Pulse oximetry Systolic blood pressure Diastolic blood pressure Provider Name and Address Organization Details Last Updated DateTime 1 165.1 cm 17.1 kg/m2 22595.3 g 81 /min 99 % 99 % 132 mm[Hg] 62 mm[Hg] AASHISH PEARSON [facility] 17:14:35 Date Recorded Body height Body mass index (BMI) Body weight Heart rate Oxygen saturation Oxygen saturation in Arterial blood by Pulse oximetry Systolic blood pressure Diastolic blood pressure Provider Name and Address Organization Details Last Updated DateTime 1 165.1 cm 16.1 kg/m2 38366.3 8 g 82 /min 100 % 100 % 122 mm[Hg] 80 mm[Hg] Andres Hansen i, MD [address] [place], [address], [facility] 17:27:02 Date Recorded Body height Body mass index (BMI) Body weight Heart rate Oxygen saturation Oxygen saturation in Arterial blood by Pulse oximetry Systolic blood pressure Diastolic blood pressure Provider Name and Address Organization Details Last Updated DateTime 2 165.1 cm 18 kg/m2 27265.9 8 g 71 /min 99 % 99 % 122 mm[Hg] 60 mm[Hg] Agustin Reynoso [place] - [facility] 2 17:14:47 Social History None recorded. Functional Status None recorded. Mental Status None recorded. Family History Nothing Reported. Medical History Condition Response Valvular Heart Disease Y Gynecological HistoryNo gynecological history recorded. Obstetrics History GPAL:G 0 P 0 0 0 0 Past Encounters Encounter ID Performer Location Encounter Start Date Encounter Closed Date Diagnosis/Indication Diagnosis SNOMED-CT Code Diagnosis ICD10 Code Diagnosis Note [id number] Andres Rogers MD [facility] [address] [place] [address] 08/11/2019 10:03:27 08/11/2019 19:06:43 Inappropriate sinus tachycardia 616495172 I47.1 Continue Metoprolol xl 25mg 1/2 tab daily. Will order stress echo to evaluate for structural disease, or exercise-i nduced arrhythmia . She will use a HR/ECG monitor through an apple watch to record symptoms. Will also order a Holter monitor. Mitral valve prolapse 40 4281414 I34.1 Anxiety 61768383 F41.9 Palpitations 04028927 R0 0.2 Holter Atypical chest pain 1025 50829 R07.89 Will get exercise stress echo, to look for any structural heart disease, and to look for any ischemia [id number] Brooke Buckley MD [facility] [address] [place] [address] 09/08/2019 09:06:53 09/08/2019 11:14:14 Inappropriate sinus tachycardia 508643106 I47.1 Increase Metoprolol to 25 mg daily.Stre ss echo with no ischemia or arrhythmia Holter monitor unremarkab le Mitral valve prolapse 40 0787657 I34.1 Check 2D echo Anxiety 20236093 F41.9 Palpitations 52210474 R0 0.2 unremarkab le Holter Atypical chest pain 1025 76923 R07.89 exercise stress echo negative for ischemia. [id number] Andres Rogers MD [facility] [address] [place] [phone] 02/26/2020 15:42:35 02/26/2020 16:16:54 Inappropriate sinus tachycardia 588038204 I47.1 Resolved with metoprolol 25mg dailyNegat silvana stress echo 08/28/2019H olter monitor unremarkab le 08/11/2019 Mitral valve prolapse 40 0593537 I34.1 Stable on echo 10/20/2019 Anxiety 38077636 F41.9 Managed by PCP Palpitations 26821912 R0 0.2 Unremarkab le Holter 08/11/2019 Atypical chest pain 1025 61286 R07.89 Resolved Negative stress echo 08/28/2019 [id number] Andres Rogers MD [facility] [address] [place] [address] 09/16/2020 17:16:31 09/16/2020 17:42:14 Inappropriate sinus tachycardia 379924171 I47.1 Resolved with metoprolol 25mg dailyNegat silvana stress echo 08/28/2019H olter monitor unremarkab le 08/11/2019 Mitral valve prolapse 40 6133566 I34.1 Stable on echo 10/20/2019 Anxiety 88350753 F41.9 Managed by PCP Palpitations 37273061 R0 0.2 Unremarkab le Holter 08/11/2019 Atypical chest pain 1025 55362 R07.89 Resolved Negative stress echo 08/28/2019 [id number] Andres Rogers MD [place] [facility] [place] [address] 02/21/2021 10:02:55 03/19/2021 11:00:02 Inappropriate sinus tachycardia 788753062 I47.1 still has some episodes while on metoprolol 25mg dailywill switch to cardizemEC HOEvent monitorlab s Mitral valve prolapse 40 8113925 I34.1 Stable on echo 10/20/2019 Anxiety 39438513 F41.9 Managed by PCP Palpitations 45068697 R0 0.2 Unremarkab le Holter 08/11/2019 Atypical chest pain 1025 01286 R07.89 Resolved Negative stress echo 08/28/2019 [id number] Andres Rogers MD [facility] [address] [place] [address] 04/22/2021 17:06:35 04/22/2021 18:05:24 Inappropriate sinus tachycardia 850971871 I47.1 switch to cardizem 30 mgECHO 03/18/21:L V chamber size is normal,the re is normal global systolic function and contractil ity,there is mild triuspid regurgitat ion. Event monitor done with 4-5 runs of afib 140-160 some atrial tachycardi a and some ventricula r tachycardi a to start ASA 325 mf EC daily Mitral valve prolapse 40 8881224 I34.1 Stable on echo 10/20/2019 Anxiety 11682778 F41.9 Managed by PCP Palpitations 85772126 R0 0.2 TSH 0.89 low low normal . Afib paroxysmal start 325 mg EC ASA normal electrolyt es to enter int the RAVEN Atypical chest pain 1025 52082 R07.89 Resolved Negative stress echo 08/28/2019 [id number] Andres oRgers MD [facility] [facility] [place] [address] 07/22/2021 17:07:08 07/22/2021 17:45:11 Inappropriate sinus tachycardia 086292453 I47.1 On Toprol nowECHO 03/18/21:L V chamber size is normal,the re is normal global systolic function and contractil ity,there is mild triuspid regurgitat ion. Event monitor done with 4-5 runs of afib 140-160 some atrial tachycardi a and some ventricula r tachycardi a to start ASA 325 mf EC daily Mitral valve prolapse 40 4629462 I34.1 Stable on echo 10/20/2019 Anxiety 67420434 F41.9 Managed by PCP Palpitations 76517597 R0 0.2 TSH 0.89 low low normal . Afib paroxysmal start 325 mg EC ASA normal electrolyt es to enter int the RAVEN Atypical chest pain 1025 28422 R07.89 Resolved Negative stress echo 08/28/2019 [id number] Andres Rogers MD [facility] [facility] [address] [place] [address] 01/20/2022 17:00:42 01/20/2022 17:53:47 Inappropriate sinus tachycardia 749842214 I47.1 On Toprol now ECHO 03/18/21:L V chamber size is normal,the re is normal global systolic function and contractil ity,there is mild triuspid regurgitat ion. Event monitor done with 4-5 runs of afib 140-160 some atrial tachycardi a and some ventricula r tachycardi a not any aspirin Mitral valve prolapse 40 4239997 I34.1 Stable on echo 10/20/2019 Anxiety 54805761 F41.9 Managed by PCP Palpitations 67956321 R0 0.2 TSH 0.89 low normal . Afib paroxysmal not in aspirin Atypical chest pain 1025 89899 R07.89 ResolvedNe gative stress echo 08/28/2019 Paroxysmal atrial fibrillation 967785490 I48.0 start plavix 75 mg daily Health Concerns Section Related Observation LastModified by Organization Detai ls LastModified Time None Recorded Concern Status LastModified by Organization Details LastModified Time None Recorded Advance Directives Directive None Recorded Payers Insurance Date Sequence Insurance Name Policy Number Policy Lomeli Covered Member ID Lomeli Member ID Guarantor Name 03/31/2021 1 [place] [employer] 104 Aleksandra Arambula [id number] Aleksandra Arambula 01/17/2022 1 [place] 104 Aleksandra Arambula [id number] Aleksandra Arambula Notes Date Note Type Note Provider Name and Address Organization Details Recorded Time 09/16/2020 text/html 09/16/2020 CC: tachycardia, palpitations Patient is a 50-year-old female with history of MVP and lyme disease, who presents for follow up. She was last evaluated in the clinic 6 months ago on 02/26/2020. Since then she has been feeling well with no complaints. Tachycardia and palpitations has resolved with increased metoprolol. Weight is stable. She was initially seen 6 months ago on 09/08/2019 for cardiac consultation for recent ED visit for inappropriate sinus tachycardia. No chest pain. No shortness of breath at rest. No dyspnea on exertion. No orthopnea. No PND's. No dizziness. No palpitation. No syncope or near syncope. No leg swelling. No nausea and vomiting. No side effects from medications. She occasionally drinks coffee. She walks frequently for exercise as well as pool exercises. Had right foot numbness in conjuction with fast HR and head ticking, so she went to the ED at [facility]. She was found to have HR 90-160 at rest in ED. Was started on Metoprolol xl 25mg 1/2 tab daily. She took one dose last night and reported improved HR. Did not take any this AM, and HR is 102. She's had symptoms with MVP with history of very occasional palpitations; current symptoms are separate. Father had hx of tachy palpitations. Results from this visit, or from the past: 02/26/20 EKG: sinus rhythm. RSR (V1) - nondiagnostic. Left atrial enlargement. Nonspecific T- abnormality. 08/11/19 Ekg- Normal SR within normal limits. 08/29/19 hm-unremarkable 08/28/19 -negative stress echo Theresa Sagastume [facility], [place] - [facility] 09/17/2020 12:45:31 02/21/2021 text/html 02/21/2021 CC: chest pain, palpitations HPI: 50-year-old female with history of MVP and yme disease is here for 6 month follow up . She was last seen in clinic on 09/16/2020. Today, she presents with concerns of chest pain and palpitations which have worsened over the last month. She has noted her heart rate has become elevated at rest and with mild activity. She has occasionally taken an extra 1/2 tablet of metoprolol (12.5 mg) with minimal relief. She has stopped all caffeine intake. She also reports chest pain located in the middle of her chest which woke her from her sleep once. She notes she has gastroparesis and has occasional heart burn but states it has been worsening and occurring more frequently at rest. She denies ER visits and hospitalizations since she was last seen. States that takes a lot of supplemnts that were given for her well being by therapist. No shortness of breath at rest. No dyspnea on exertion. No orthopnea. No PND. No dizziness. No syncope or near syncope. No leg swelling. No nausea and vomiting. No side effects from medications. Previously,Had right foot numbness in conjuction with fast HR and head ticking, so she went to the ED at [facility]. She was found to have HR 90-160 at rest in ED. Was started on Metoprolol xl 25mg 1/2 tab daily. She took one dose last night and reported improved HR. Results from this visit, or from the past: chem 12/31/20 k 3.7, ast 34, alt 40lipids 12/30/20 tg 55, hdl 108, ldl 122 EKG (02/21/21): NSR, IRBBB, poor R, NSST changes EKG 09/16/20:Atrial rhythm,p:QRS 1.1 abnormal P axis,H Rate 84,Right sided conduction defect and right axis possible right ventricular hypertrophy or posterior fascicular block,inferior infarct age undeterminated,negati ve T wave possible inferior ischemia. 02/26/20 EKG: sinus rhythm. RSR (V1) - nondiagnostic. Left atrial enlargement. Nonspecific T- abnormality. 08/11/19 Ekg- Normal SR within normal limits. 08/29/19 hm-unremarkable 08/28/19 -negative stress echo Issac Daniel [facility], [place] - [facility] 02/21/2021 12:41:35 04/22/2021 text/html 04/22/21 CC : Cardiac follow up HPI: 50-year-old female with history of MVP and Lyme disease is here for 1 month follow up with ECHO to discuss the results. She was last seen in the clinic on 02/21/21 , since then [place] denies ER visits and hospitalizations since she was last seen. She had echo, event monitor and labwork. *Had ECHO done in 03/18/21 showed LV chamber size is normal,there is normal global systolic function and contractility,there is mild triuspid regurgitation. MVP Had 4-5 runs short runs of afib and some ventricular tachycardia. some sinus tachycardia, Some may have been with orgasm, afib 6:30 PM rate 140-160 Is not on an ASA On Cardizem 30 has been helping Today reports:Denies chest pain.Denies shortness of breath at rest. Has mild dyspnea on exertion.No orthopnea. No PNDs.Denies heart palpitations.Denies dizziness. Denies syncope or near syncope.No ankle or leg edema.No major bleeding events. No reported side effects from medications. Taking medications as prescribed with no missed doses. Denies snoring, daytime somnolence and AM headache. *Last LDL was 122 done on 12/29/20 .Pt dose not takes any statins. *Had ECHO done in 03/18/21 showed LV chamber size is normal,there is normal global systolic function and contractility, there is mild triuspid regurgitation.Previou sly: She had chest pain and palpitations.She has noted her heart rate has become elevated at rest and with mild activity.She had occasionally taken an extra 1/2 tablet of metoprolol (12.5 mg) with minimal relief. She has stopped all caffeine intake.She also reported chest pain located in the middle of her chest which woke her from her sleep once. She notes she has gastroparesis and has occasional heart burn but states it has been worsening and occurring more frequently at rest.States that takes a lot of supplemnts that were given for her well being by therapist.Had right foot numbness in conjuction with fast HR and head ticking, so she went to the ED at [facility]. She was found to have HR 90-160 at rest in ED. Was started on Metoprolol xl 25mg 1/2 tab daily. She took one dose last night and reported improved HR. Results from this visit, or from the past:chem 12/31/20 k 3.7, ast 34, alt 40lipids 12/30/20 tg 55, hdl 108, ldl 122EKG (02/21/21): NSR, IRBBB, poor R, NSST changesEKG 09/16/20:Atrial rhythm,p:QRS 1.1 abnormal P axis,H Rate 84,Right sided conduction defect and right axis possible right ventricular hypertrophy or posterior fascicular block,inferior infarct age undeterminated,negati ve T wave possible inferior ischemia.02/26/20 EKG: sinus rhythm. RSR (V1) - nondiagnostic. Left atrial enlargement. Nonspecific T- abnormality.08/11/19 Ekg- Normal SR within normal limits.08/29/19 hm-iiwiusfalwxu22/20/ 20 -negative stress echo [facility] [facility] 04/22/2021 17:50:47 07/22/2021 text/html 07/22/21CC : James corona follow upHPI: 51-year-old female with history of MVP and Lyme disease is here for 3 month follow up. She was last seen in the clinic on 04/22/21 , since then she had side effects from Cardizem, now she is back on ToprolShe denies ER visits and hospitalizations since she was last seen.Denies chest pain.Denies shortness of breath at rest. Has mild dyspnea on exertion.No orthopnea. No PNDs.Denies heart palpitations.Denies dizziness. Denies syncope or near syncope.No ankle or leg edema.No major bleeding events.No reported side effects from medications. Taking medications as prescribed with no missed doses.Denies snoring, daytime somnolence and AM headache. She was last seen in the clinic on 02/21/21 , since then [place] denies ER visits and hospitalizations since she was last seen. She had echo, event monitor and labwork. *Had ECHO done in 03/18/21 showed LV chamber size is normal,there is normal global systolic function and contractility,there is mild triuspid regurgitation. MVP Had 4-5 runs short runs of afib and some ventricular tachycardia. some sinus tachycardia, Some may have been with orgasm, afib 6:30 PM rate 140-160 Is not on an ASA On Cardizem 30 has been helping Today reports:Denies chest pain.Denies shortness of breath at rest. Has mild dyspnea on exertion.No orthopnea. No PNDs.Denies heart palpitations.Denies dizziness. Denies syncope or near syncope.No ankle or leg edema.No major bleeding events. No reported side effects from medications. Taking medications as prescribed with no missed doses. Denies snoring, daytime somnolence and AM headache. *Last LDL was 122 done on 12/29/20 .Pt dose not takes any statins. *Had ECHO done in 03/18/21 showed LV chamber size is normal,there is normal global systolic function and contractility, there is mild triuspid regurgitation.Previou sly: She had chest pain and palpitations.She has noted her heart rate has become elevated at rest and with mild activity.She had occasionally taken an extra 1/2 tablet of metoprolol (12.5 mg) with minimal relief. She has stopped all caffeine intake.She also reported chest pain located in the middle of her chest which woke her from her sleep once. She notes she has gastroparesis and has occasional heart burn but states it has been worsening and occurring more frequently at rest.States that takes a lot of supplemnts that were given for her well being by therapist.Had right foot numbness in conjuction with fast HR and head ticking, so she went to the ED at [facility]. She was found to have HR 90-160 at rest in ED. Was started on Metoprolol xl 25mg 1/2 tab daily. She took one dose last night and reported improved HR. Results from this visit, or from the past:chem 12/31/20 k 3.7, ast 34, alt 40lipids 12/30/20 tg 55, hdl 108, ldl 122EKG (02/21/21): NSR, IRBBB, poor R, NSST changesEKG 09/16/20:Atrial rhythm,p:QRS 1.1 abnormal P axis,H Rate 84,Right sided conduction defect and right axis possible right ventricular hypertrophy or posterior fascicular block,inferior infarct age undeterminated,negati ve T wave possible inferior ischemia.02/26/20 EKG: sinus rhythm. RSR (V1) - nondiagnostic. Left atrial enlargement. Nonspecific T- abnormality.08/11/19 Ekg- Normal SR within normal limits.08/29/19 hm-txjggghxxisj36/20/ 20 -negative stress echo Andres Rogers MD [address] [place], [address], [place] - [facility] 07/22/2021 17:43:09 01/20/2022 text/html 01/20/22CC : James dubose follow up a fibHPI: 51-year-old female with history of MVP, proximal a fib , hypothyroidism and Lyme disease is here for 6 month follow up. She was last seen in the clinic on 07/22/21, since then she is doing well in general. She has occasional chest pain that last for few second and is it sharp in nature. She is not taking aspirin because it bother her stomach. She has occasional dizziness especially when she increased her thyroid level. *Last LDL was 108 done on 06/29 .Pt dose not takes any statins She denies ER visits and hospitalizations since she was last seen. Today reports:6 MO FU,PT has questions about medications.Admits chest pain.Denies shortness of breath at rest. Has mild dyspnea on exertion.No orthopnea. No PNDs.occasional heart palpitations.Denies dizziness. Denies syncope or near syncope.No ankle or leg edema.No major bleeding events.No reported side effects from medications. Taking medications as prescribed with no missed doses.Denies snoring, daytime somnolence and AM headache.*Last LDL was 108 done on 06/29 .Pt dose not takes any statins. Previously : She had side effects from Cardizem, now she is back on Toprol *Had ECHO done in 03/18/21 showed LV chamber size is normal,there is normal global systolic function and contractility,there is mild tricuspid regurgitation. MVP Had 4-5 runs short runs of afib and some ventricular tachycardia. some sinus tachycardia, Some may have been with orgasm, afib 6:30 PM rate 140-160 Is not on an ASA On Cardizem 30 has been helping She had chest pain and palpitations.She has noted her heart rate has become elevated at rest and with mild activity.She had occasionally taken an extra 1/2 tablet of metoprolol (12.5 mg) with minimal relief. She has stopped all caffeine intake.She also reported chest pain located in the middle of her chest which woke he [id number]|2024-12-23 12:10:00|2024-12-23 12:10:00|XMS_ITS|BKG DAEMON|External Medical Summaries|[id number]|" Encounter Summary Created on: December 23, 2024 Aleksandra Arambula : 1970 Sex: Female Author Organization [facility] Address [address] [place] [address] Care Team Providers Care Bed Maker Name Role Phone Tracie Buenrostro MD Primary Care Provider [phone] Encounter Details Date Type Department Care Team (Late st Contact Info) Description 01/05/2024 Orders Only [facility] [place] [place] Health Information Management [address] [place] [address] Scanning, Provider Social History Tobacco Use Types Packs/Day Years Used Date Smoking Tobacco: Never Passive Smoke Exposure: Never Smokeless Tobacco: Never AUDIT-C Answer Date Recorded Q1: How often do you have a drink containing alcohol? Never 04/26/2023 Q2: How many drinks containi ng alcohol do you have on a typical day when you are drinking? Patient does not drink Q3: How often do you have si x or more drinks on one occasion? 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 CUTTER Gender Identity Female 06/18/2021 8:14 PM PIE CUTTER Sexual Orientation Straight 06/18/2021 8: 14 PM PIE CUTTER documented as of this encounter Plan of Treatment Not on file documented as of this encounter Procedures Procedure Name Priority Date/Time Associated Diagnosis Comments SCAN - LABS 01/05/2024 documented in this encounter Results * SCAN - LABS (01/05/2024) us Provider Scanning Final Result documented in this encounter Visit Diagnoses Not on filedocumented in this encounter Care Teams Bed Maker Relationship Specialty Start Date End Date Tracie Buenrostro MD [address] [place] [address] PCP - General Internal Medicine 06/19/21 documented as of this encounter "
--- OUTSIDE RECORDS SUMMARY | 2024-12-23 12:10 | XMS_ITS | Data Portability ---
Author Organization [place] - [facility], [facility], [facility] Address [address] [place] [address] Assessment No assessment recorded. Plan of Treatment Reminders Order Date Submit Date Provider Last Modified By Organization Details Last Modified Time Details Appointments None recorded. Lab estradiol, serum 2018 RAVEN Not available 9 00:22:46 progestero ne, serum 2018 RAVEN Not available 9 00:22:46 estrone (E1), serum 2018 RAVEN Not available 9 00:22:45 testostero ne, total, serum 2018 smimms Not available 9 08:36:28 dhea-sulfa te, serum 2018 RAVEN Not available 9 00:22:45 FSH (follicle- stimulatin g hormone), serum 2018 RAVEN Not available 9 00:22:46 Referral None recorded. Procedures None recorded. Surgeries None recorded. Imaging None recorded. Medication Orders progestero ne micronized 100 mg capsule 2018 INTERFACE [id number], [address], [place], [id number], 9 13:35:23 Patient TargetsNo targets recorded. Patient Instructions Encounter Date Encounter Id Patient Instructions Last Modified By Organization Details Last Modified Time 05/12/2019 [id number] Scan and email last bone density [email or web address] Not available 05/12/2019 13:28:35 Reason for Referral None Reported. Results Created Date Observation Date Name Description Value Unit Range Abnormal Flag Note LastModifiedBy Organization Detail LastModifiedTime 05/12/2005/17/2019 testo stero ne, free + total , serum testosterone , total, MS 17 NG/dL 2-45 For addit ional infor samm quijano e refer to http: //[facility] danna perea stdia gnost ics.c om/fa q/Tot al Testo stero neLCM SMS (This link is being provi ded for infor matio nal/e ducat ional purpo ses only. ) This test was devel oped and its sravani tical perfo rmanc e jemima cteri stics have been deter mined by [employer] [facility] [facility]. It has not been clear ed or appro jared by the FDA. This assay has been valid ated pursu ant to the CLIA regul ation s and is used for clini nataliya purpo ses. Not Available [facility] [address] [place], [address], 05/18/2019 00:22:45 05/12/20 19 05/17/2019 testo stero ne, free + total , serum testosterone , free 0.7 pg/mL 0.1-6. 4 This test was devel oped and its sravani tical perfo rmanc e jemima cteri stics have been deter mined by [employer] [facility]. It has not been clear ed or appro jared by the FDA. This assay has been valid ated pursu ant to the CLIA regul ation s and is used for clini nataliya purpo ses. Not Available [facility] [address] [place], [address], 05/18/2019 00:22:45 05/12/20 19 05/17/2019 estro ne (E1), serum estrone <10 pg/mL Adult Femal e Refer ence Range s for Estro ne: Folli cular Phase : 10-13 8 pg/mL Lutea l Phase : 16-17 3 pg/mL Postm enopa usal Phase : < or = 65 pg/mL Pedia tric Femal e Refer ence Range s for Estro ne: Pre-p ubert al (1-9 years ): < or = 34 pg/mL 10-11 years : < or = 72 pg/mL 12-14 years : < or = 75 pg/mL 15-17 years : < or = 188 pg/mL This test was devel oped and its sravani tical perfo rmanc e jemima cteri stics have been deter mined by [facility] [employer] transebastián . It has not been clear ed or appro jared by FDA. This assay has been valid ated pursu ant to the CLIA regul ation s and is used for clini nataliya purpo ses. Not Available [facility] [address] [place], [address], 05/18/2019 00:22:45 05/12/2005/17/2019 dhea- sulfa te, serum DHEA sulfate 66 mcg/d L 19-231 normal DHEA- S value s fall with advan cing age. For refer ence, the refer ence inter vals for 31-40 year old patie nts are: Male: 106-4 64 mcg/d L Femal e: 23-26 6 mcg/d L Not Available [facility] [address] [place], [address], 05/18/2019 00:22:45 05/12/2005/17/2019 FSH (foll icle- stimu latin g hormo ne), serum FSH 130.8 mIU/m L high Refer ence Range Folli cular Phase 2.5-1 0.2 Mid-c ycle Peak 3.1-1 7.7 Lutea l Phase 1.5- 9.1 Postm enopa usal 23.0- 116.3 Not Available [facility] [address] [place], [address], 05/18/2019 00:22:46 05/12/2005/17/2019 proge stero ne, serum progesterone <0.5 NG/mL normal Refer ence Range s Femal e Folli cular Phase < 1.0 Lutea l Phase 2.6-2 1.5 Post menop ausal < 0.5 Pregn antonio 1st Trime ster 4.1-3 4.0 2nd Trime ster 24.0- 76.0 3rd Trime ster 52.0- 302.0 Not Available [facility] [address] [place], [address], 05/18/2019 00:22:46 05/12/20 19 05/17/2019 estra diol, serum estradiol <15 pg/mL normal Refer ence Range Folli cular Phase : 19-14 4 Mid-C ycle: 64-35 7 Lutea l Phase : 56-21 4 Postm enopa usal: < or = 31 Refer ence range estab lishe d on post- puber koffi patie nt popul ation . No pre-p ubert al refer ence range estab lishe d using this assay . For any patie nts for whom low Estra diol level s are antic ipate d (e.g. males , pre-p ubert al child evi and hypog onada l/pos t-men opaus al femal es), the [facility] Estra diol, Ultra sensi tive, LCMSM S assay is recom mohan d (orde r code 88138 ). Pleas e note: patie nts being treat ed with the drug fulve stran t (Fasl odex( R)) have demon strat ed signi fican t inter feren ce in immun oassa y metho ds for estra diol measu remen t. The cross react ivity could lead to false ly eleva lori estra diol test resul ts leadi ng to an inapp ropri ate clini nataliya asses sment of estro gen statu s. [facility] order code 24042 -Estr adiol , Ultra sensi tive LC/MS /MS demon strat es negli gible cross react ivity with fulve stran t. Not Available [facility] [address] [place], [address], 05/18/2019 00:22:46 05/18/20 19 bone densi ty No observ ation record ed. smimms Not Available 2018 16:32:23 Result Notes None recorded. Procedures Surgical History None recorded. Imaging Results Imaging Date Name Status LastModified by Organiz ation Details LastModified Time 05/18/2019 bone density completed [facility]im[facility] Information not available 05/18/2019 16:32:23 Procedure Notes None recorded. Medical Equipment None Reported. Allergies Allergen ID Allergen Name Allergen Category Reaction Reaction Severity Criticality Documentation Date Start Date Code Code System Note Provider Name and Address Organization Details Recorded Time 04782 codeine medicatio n Not available Not available Not available 05/12/2019 [address] [facility] 9 11:56:05 Medications Name Sig Start Date Stop Date Status Note LastModified by Organization Details LastModified Time fluconazole 200 mg tablet 05/12 completed Not Available Not Available Not Available metronidazole 250 mg tablet 05/12 completed Not Available Not Available Not Available nystatin 500,000 unit tablet TK 4 T PO BID FOR 30 DAYS active Not Available Not Available No t Available metoclopramide 5 mg tablet 05/12 completed Not Available Not Available Not Available doxycycline monohydrate 100 mg capsule 05/12 completed Not Available Not Available Not Available montelukast 10 mg tablet 05/12 completed Not Available Not Available Not Available albuterol sulfate HFA 90 mcg/actuation aerosol inhaler 05/12 completed Not Available Not Available Not Available ipratropium bromide 42 mcg (0.06 %) nasal spray active Not Available Not Available Not Available progesterone micronized 100 mg capsule TK 1 TO 2 CS PO QHS active Not Available Not Available No t Available Restasis 0.05 % eye drops in a dropperette 05/12 completed Not Available Not Available Not Available DMSA (Bulk) 98 % powder active Not Available Not Available Not Available Vitals Date Recorded Body height Body mass index (BMI) Body weight Heart rate Systolic blood pressure Diastolic blood pressure Provider Name and Address Organization Details Last Updated DateTime 9 166.37 cm 16.6 kg/m2 24981.8 3 g 90 /min 105 mm[Hg] 73 mm[Hg] [facility] 9 11:55:16 Social History None recorded. Functional Status None recorded. Mental Status None recorded. Family History Relationship Description Onset Age of this Age Resolved Age Notes LastModified by Organization Details LastModified Time Father Malignant neoplasm of prostate amalic Not available 2018 11:57:56 Father Hypertensive disorder amalic Not available 2018 11:58:05 Mother Hypertensive disorder amalic Not available 2018 11:58:05 Mother Type 2 diabetes mellitus 62 [email or web address] Not available 2018 12:54:00 Medical History Condition Response Coronary Artery Disease N Gout N Kidney Stones N Blood Diseases N Hyperthyroidism N Depression N COPD N Hypothyroidism N Developmental or Behavioral Disorders N Anxiety Disorder N Muscle, Joint, or Bone Problems N Vision or Eye Problems N Arthritis N Head Injury/Concussion N Congenital Anomalies N Cancer N Stroke N ADHD N Bladder or Kidney Problems N Hospital Admission other than N High Cholesterol N Liver Disease N Headaches N Fibromyalgia N Kidney Disease N Ear or Hearing Problems N Thyroid Problems N Skin Problems N Anemia N Constipation N Mental Illness N Diabetes N Bedwetting N Seizures/Epilepsy N Heart Problems/Murmur N Tuberculosis N Diverticulitis N Asthma N Allergies N Reflux/GERD N Heart Disease N Pulmonary Embolism N Hypertension N Chicken Pox Y Autism Spectrum Disorder (ASD) N Osteoporosis N Gynecological HistoryNo gynecological history recorded. Obstetrics History GPAL:G 0 P 0 0 0 0 Past Encounters Encounter ID Performer Location Encounter Start Date Encounter Closed Date Diagnosis/Indication Diagnosis SNOMED-CT Code Diagnosis ICD10 Code Diagnosis Note [id number] Asif Ibarra MD Main Office [address] [place] [phone] [id number] 05/12/2019 11:46:47 05/12/2019 13:40:24 History of Lyme disease 502949349 Z86.19 Chronic back pain 955390 002 M54.9 Menopausal syndrome 1237 51903 N95.9 Candidiasis 29442181 B37 .9 Exposure to mercury 9587 1003 Z77.018 Osteoporosis 39772488 M8 1.0 Health Concerns Section Related Observation LastModified by Organization Detai ls LastModified Time None Recorded Concern Status LastModified by Organization Details LastModified Time None Recorded Advance Directives Directive None Recorded Payers Encounter Date Sequence Insurance Name Policy Number Policy Lomeli Covered Member ID Lomeli Member ID Guarantor Name 05/12/2019 1 [employer] [employer] - [employer] [id number] Aleksandra Arambula [id number] Aleksandra Arambula Notes Date Note Type Note Provider Name and Address Organization Details Recorded Time 05/12/2019 text/html Chronic Lyme treated for [address] Sachin Sen. [employer] criteria. Caught in [facility] on cmping trip. Stills uses infrequent AB pulses 7-10 days - Flagyl, Doxycycline, or Zithromax on rotating basis - every 2-6 months, together with antifungal probiotic. Also worked with Saul Almaraz on parasites, fungal and dental problems - all has been corrected. Also has chelation for mercury - DMPS monthly for about 2 years and will not do more frequently - would like it done more frequently, like weekly. Highest level was 150 on 06/22/2018, and most recent was 31 on 01/18/2019.Also uses DMSA orally every Me We Fr Worst symptom was joint pain everywhere, then entire back, now only neck at insertion of nuchal musculature. Used to have headaches after chelation which are now much milder.Recurrent phlebitis from intravenous C therefore can no longer use. 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 Diet now mostly meat carnivore diet .Chicken: pain flares. 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 no children by children. 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 Struggles to gain weight - highest ever was 118. Mentally/emotional ly better lately since I've had less pain .Sleep is hardTook hormones in past - progesterone toribio (250 mg she thinks) and estrogen/Testoster one cream but stopped due to cost. Now wakes after 3 hours of sleep. . Had 07/2016 simple hysterectomy for fibroids with great relief of low back pain. Does have hot flashes. Energy level pretty good was never really chronically fatigued.Not prone to depression or anxiety. Known osteoporosis - does Osteostrong Asif Ibarra MD [address] [facility], [place], [address], [place] - [facility] 05/12/2019 13:35:38 OBGyn Episode No OBEpisode recorded.
--- OUTSIDE RECORDS SUMMARY | 2024-12-23 12:10 | XMS_ITS | Clinical Summary ---
Author Organization [facility] Address [address] [place] [phone] Care Team Providers Care Extension Service Advisor Name Role Phone Unavailable Primary Care Provider Unavailabl e Encounters Date Type Department Care Team Description 12/12/2024 External Device Data [facility] ABSTRACTION Provider, Abstract 10/25/2024 External Device Data [facility] Provider, Abstract 10/18/2024 External Device Data [facility] Provider, Abstract 10/17/2024 External Device Data [facility] Provider, Abstract 10/14/2024 External Device Data [facility]CTION Provider, Abstract 10/13/2024 External Device Data [facility]STRACTION Provider, Abstract 10/11/2024 External Device Data [facility] Provider, Abstract 09/27/2024 External Device Data [facility]STRACTION Provider, Abstract from Last 3 Months Social History Tobacco Use Types Packs/Day Years Used Date Smoking Tobacco: Never Assessed Comments Unknown Sex and Gender Information Value Date Recorded Sex Assigned at Not on file Legal Sex Female 5:59 PM TAPE DU[employer]IC[employer] Gender Identity Not on file Sexual Orientation Not on file Plan of Treatment Health Maintenance Due Date Last Done Comments DTAP/TDAP/TD VACCINES (1 - Tdap) 1989 HEPATITIS B VACCINES (1 of 3 - 19+ 3-dose series) 07/09 HPV/Cotest (21-29) 1991 CERVICAL CANCER SCREENING 2000 HPV/Cotest (30-65) 2000 PAP SMEAR 2000 FIT-DNA Q 3 years 2015 FIT/FOBT Q 1 year 2015 Flex Sig/CT Colonography Q 5 years 2015 ZOSTER VACCINE (1 of 2) 2020 INFLUENZA VACCINE (#1) 2024 BREAST CANCER SCREENING 01/27/2025 01/28/2024 COLORECTAL SCREENING 03/11/2026 03/11/2016 Colorectal Cancer Screening 03/11/2026 Procedures Procedure Name Priority Date/Time Associated Diagnosis Comments MAMMO 3D GIANNA SCREEN BILAT W OR WO CAD Routine 01/28/2024 11:27 AM CDT Breast cancer screening by mammogram from Last 3 Months or Most Recently Relevant to Health Maintenance Results * MAMMO 3D GIANNA SCREEN BILAT W OR WO CAD (01/28/2024 11:27 AM CDT) Anatomical Region Laterality Modality Breast Bilateral Mammography 01/28/2024 11:2 7 AM CDT Impressions 01/28/2024 1:12 PM CDT IMPRESSION: NO MAMMOGRAPHIC EVIDENCE OF MALIGNANCY. OVERALL BIRADS CATEGORY:1 - negative. ROUTINE SCREENING MAMMOGRAPHY IS RECOMMENDED IN 12 MONTHS. A normal letter will be sent to patient. Narrative 01/28/2024 1:12 PM CDT EXAM: MAMMO 3D GIANNA SCREEN BILAT W OR WO CAD STUDY DATE: 01/28/2024 11:27 AM CLINICAL INDICATION: 53 years old female presents for routine screening mammography. COMPARISON: Prior mammograms, the most recent dated 01/15/2023 PROCEDURE: CC and MLO digital mammographic views of the bilateral breasts are obtained. Computer Aided Detection (CAD) was utilized. Tomosynthesis was done with all views. FINDINGS: Breast Density: Extremely dense, which lowers the sensivitvity of mammography. Right breast: There are no spiculated masses, suspicious microcalcifications or areas of architectural distortion in the right breast. Left breast: There are no spiculated masses, suspicious microcalcifications or areas of architectural distortion in the left breast. Lucia Liz DO MAMMO ORDERABLES Final Result from Last 3 Months or Most Recently Relevant to Health Maintenance Insurance [facility] BLUE ACCESS CHOICE
== END 2024-12-22 14:40 | disposition home or self-care (01) ==
PROVIDERS: Emergency Provider Nurse Practitioner
DX: R35.0 Frequency of micturition (principal); R39.15 Urgency of urination; R30.0 Dysuria
CPT/HCPCS: 81003; 87086; 99213; G0463